=== PATIENT | female | born 1990 | race Caucasian/White ===

== ENCOUNTER 2021-07-05 18:32 | Emergency (ER) | payer MEDICAID ==
[~2021-07-05] VITALS: Ht 162.6 cm; Wt 81.0 kg
[2021-07-05 18:56] VITALS: BP 116/64
[2021-07-05] MEDS ORDERED: ACETAMINOPHEN 325MG TABLET PO ONE (20:45)
[2021-07-05] MEDS ORDERED: CYCL10TA7 MT (21:48)
[2021-07-05] MEDS ORDERED: IBUP-2029 MT (21:49)
== END 2021-07-05 22:03 | disposition home or self-care (01) ==
LOC: ER 18:32
DX: S16.1XXA Strain of muscle, fascia and tendon at neck level, initial encounter (principal); V43.52XA Car driver injured in collision with other type car in traffic accident, initial encounter; Y93.89 Activity, other specified; Y92.89 Other specified places as the place of occurrence of the external cause; Y99.8 Other external cause status
CPT/HCPCS: 81025; 99284